=== PATIENT | male | born 1990 | race African-American/Black ===

== ENCOUNTER 2016-09-24 09:45 | Emergency (ER) | payer MEDICAID ==
[~2016-09-24] VITALS: Ht 190.5 cm; Wt 101.0 kg
[~2016-09-24 09:45] MED LIST: ASCO500 PEG; CYAN250014 PO
[2016-09-24] MEDS ORDERED: POVIDONE-IODINE 10% 15 ML SOLUTION UD TP ONE (10:45)
[2016-09-24] MEDS ORDERED: BACITRACIN 0.9 GM PACKET OINTMENT TP ONE (10:45)
[2016-09-24] MEDS ORDERED: HYDROCODONE/ACETAMINOPHEN 10-325 MG TABLET PO ONE (10:45)
[2016-09-24 11:06] VITALS: BP 146/69
== END 2016-09-24 11:10 | disposition home or self-care (01) ==
LOC: EMS 09:47
DX: L02.31 Cutaneous abscess of buttock (principal); L03.115 Cellulitis of right lower limb; F12.90 Cannabis use, unspecified, uncomplicated; Z88.0 Allergy status to penicillin; F17.210 Nicotine dependence, cigarettes, uncomplicated
CPT/HCPCS: 99284

== ENCOUNTER 2016-10-18 00:28 | Emergency (ER) | payer SELFPAY ==
[~2016-10-18] VITALS: Ht 188 cm; Wt 97.0 kg
[2016-10-18] MEDS ORDERED: LORazepam 2 MG TABLET PO ONE (03:30)
[2016-10-18 03:46] VITALS: BP 144/96
== END 2016-10-18 03:48 | disposition home or self-care (01) ==
LOC: EMS 00:30
DX: F41.9 Anxiety disorder, unspecified (principal); F43.20 Adjustment disorder, unspecified; F10.10 Alcohol abuse, uncomplicated; F32.9 Major depressive disorder, single episode, unspecified; F17.210 Nicotine dependence, cigarettes, uncomplicated; F12.90 Cannabis use, unspecified, uncomplicated; Z88.0 Allergy status to penicillin; Y90.9 Presence of alcohol in blood, level not specified
CPT/HCPCS: 99284; 99406

== ENCOUNTER 2016-12-09 02:09 | Emergency (ER) | payer MEDICAID ==
[~2016-12-09] VITALS: Ht 180.3 cm; Wt 81.8 kg
[2016-12-09] MEDS ORDERED: ALBUTEROL SULFATE HFA 90 MCG/PUFF 8 GM INHALER IH ONE (04:15)
[2016-12-09] MEDS ORDERED: LORazepam 2 MG TABLET PO ONE ×2 (04:15)
[2016-12-09 04:31] VITALS: BP 121/78
== END 2016-12-09 04:33 | disposition home or self-care (01) ==
LOC: EMS 02:12
DX: F41.9 Anxiety disorder, unspecified (principal); J45.901 Unspecified asthma with (acute) exacerbation; F32.9 Major depressive disorder, single episode, unspecified; F17.210 Nicotine dependence, cigarettes, uncomplicated; F12.90 Cannabis use, unspecified, uncomplicated; Z59.0 Homelessness; Z88.0 Allergy status to penicillin
CPT/HCPCS: 94640; 99284; 99406; J3535

== ENCOUNTER 2016-12-18 12:50 | Emergency (ER) | payer MEDICAID ==
[~2016-12-18] VITALS: Ht 190.5 cm; Wt 100.0 kg
[2016-12-18 12:56] VITALS: BP 174/100
== END 2016-12-18 16:10 | disposition left against medical advice (07) ==
LOC: EMS 12:51
DX: L02.31 Cutaneous abscess of buttock (principal); F17.210 Nicotine dependence, cigarettes, uncomplicated; F12.90 Cannabis use, unspecified, uncomplicated; Z53.21 Procedure and treatment not carried out due to patient leaving prior to being seen by health care provider

== ENCOUNTER 2016-12-19 08:48 | Emergency (ER) | payer MEDICAID ==
[~2016-12-19] VITALS: Ht 188 cm; Wt 100.0 kg
[2016-12-19] MEDS ORDERED: LIDOCAINE HCL BUFFERED 1% 20 ML VIAL INJ ONE (11:15)
[2016-12-19] MEDS ORDERED: OxyCODONE HCL/ACETAMINOPHEN 5-325 MG TABLET PO ONE (11:15)
[2016-12-19] MEDS ORDERED: ONDANSETRON HCL 4 MG TABLET PO ONE (11:30)
[2016-12-19] MEDS ORDERED: IBUPROFEN 800 MG TABLET PO ONE (13:45)
[2016-12-19 14:09] VITALS: BP 132/75
== END 2016-12-19 14:19 | disposition home or self-care (01) ==
LOC: EMS 08:50
DX: L02.31 Cutaneous abscess of buttock (principal); F17.210 Nicotine dependence, cigarettes, uncomplicated; F12.90 Cannabis use, unspecified, uncomplicated; Z88.0 Allergy status to penicillin
CPT/HCPCS: 10060; 99284; J3490; Q0162

== ENCOUNTER 2017-02-14 05:23 | Emergency (ER) | payer MEDICAID ==
[~2017-02-14] VITALS: Ht 190.5 cm; Wt 93.2 kg
[2017-02-14] MEDS ORDERED: QUET25TA PO (05:31)
[2017-02-14] MEDS ORDERED: OLAN10TA3 PO (05:31)
[2017-02-14] MEDS ORDERED: ALBU8HFA IH (05:31)
[2017-02-14] MEDS ORDERED: QUEtiapine FUMARATE 200 MG TABLET PO ONE (06:30)
[2017-02-14] MEDS ORDERED: QUEtiapine FUMARATE 25 MG TABLET PO ONE (06:30)
[2017-02-14 06:43] LABS: BASOPHILS # (AUTO) 0.04 K/uL (0.00-0.20); BASOPHILS % (AUTO) 0.5 % (0.0-2.0); EOSINOPHILS # (AUTO) 0.03 K/uL (0.00-0.70); EOSINOPHILS % (AUTO) 0.37 % (1.0-6.0); HEMOGLOBIN 16.5 g/dL (13.5-17.5); LYMPHOCYTES # (AUTO) 1.5 K/uL (1.0-4.8); LYMPHOCYTES % (AUTO) 19.8 % (22.0-44.0); MEAN CORPUSCULAR HEMOGLOBIN 27.4 pg (26.0-34.0); MEAN CORPUSCULAR HGB CONC 32.9 G/dL (31.0-37.0); MEAN CORPUSCULAR VOLUME 83 fL (80-100); MONOCYTES # (AUTO) 0.8 K/uL (0.1-1.0); MONOCYTES % (AUTO) 10.4 % (2.0-9.0); NEUTROPHILS # (AUTO) 5.4 K/uL (1.8-7.7); PLATELET COUNT (AUTO) 268 K/uL (150-450); RED CELL DISTRIBUTION WIDTH 14.3 % (11.5-14.5); WHITE BLOOD COUNT (AUTO) 7.8 K/uL (4.5-11.0)
[2017-02-14 06:54] LABS: ANION GAP 11 mmol/L (8-16); CALCIUM, TOTAL 9.6 mg/dL (8.8-10.5); CARBON DIOXIDE 27 mmol/L (22-29); CHLORIDE 99 mmol/L (98-107); CREATININE 1.43 mg/dL (0.60-1.30); GLOMERULAR FILTR. RATE CALC > 60 mL/min (>60); POTASSIUM 4.3 mmol/L (3.5-5.1); SODIUM SERUM 137 mmol/L (136-145); UREA NITROGEN, BLOOD 22 mg/dL (7-18)
[2017-02-14 06:59] LABS: ALANINE AMINOTRANSFERASE 45 U/L (12-78); ASPARTATE AMINOTRANSFERASE 68 U/L (15-37); BILIRUBIN,TOTAL 0.9 mg/dL (0.1-1.0); TOTAL PROTEIN, SERUM 8.9 g/dL (6.4-8.2)
[2017-02-14 07:34] VITALS: BP 132/87
== END 2017-02-14 07:41 | disposition home or self-care (01) ==
LOC: EMS 05:26
DX: F41.9 Anxiety disorder, unspecified (principal); F15.10 Other stimulant abuse, uncomplicated; F17.210 Nicotine dependence, cigarettes, uncomplicated; F32.9 Major depressive disorder, single episode, unspecified; I10 Essential (primary) hypertension; F12.90 Cannabis use, unspecified, uncomplicated; Z88.0 Allergy status to penicillin
CPT/HCPCS: 36415; 80053; 80307; 85025; 99284; 99406; G0480

== ENCOUNTER 2017-02-14 20:33 | Emergency (ER) | payer MEDICAID ==
[~2017-02-14] VITALS: Ht 188 cm; Wt 84.0 kg
[~2017-02-14 20:33] MED LIST changes: +ALBU8HFA IH; +Fluoxetine Hcl PO; +MELO-273 PO; +OLAN10TA3 PO; +OLAN5Z PO; +PRAZ1 PO; +QUET25TA PO; +TETR500C PO; +no meds
[2017-02-14 23:15] VITALS: BP 122/78
[2017-02-15] MEDS ORDERED: QUEtiapine FUMARATE 25 MG TABLET PO ONE
== END 2017-02-15 00:05 | disposition home or self-care (01) ==
LOC: EMS 20:34
DX: F20.9 Schizophrenia, unspecified (principal); F32.9 Major depressive disorder, single episode, unspecified; F17.210 Nicotine dependence, cigarettes, uncomplicated; I10 Essential (primary) hypertension; Z88.0 Allergy status to penicillin
CPT/HCPCS: 99284

== ENCOUNTER 2017-04-13 02:42 | Emergency (ER) | payer MEDICAID ==
[~2017-04-13] VITALS: Ht 188 cm; Wt 95.5 kg
[~2017-04-13 02:42] MED LIST changes: -ASCO500 PEG; -CYAN250014 PO; -Fluoxetine Hcl PO; -MELO-273 PO; -OLAN5Z PO; -PRAZ1 PO; -TETR500C PO; -no meds
[2017-04-13] MEDS ORDERED: UNK HTN MED PO (02:51)
[2017-04-13] MEDS ORDERED: ARIP10TA14 PO (02:51)
[2017-04-13] MEDS ORDERED: CEPH500 PO (02:51)
[2017-04-13] MEDS ORDERED: LURA40 PO (02:51)
[2017-04-13 02:52] LABS: GLUCOSE,POINT OF CARE 119 MG/DL (70-110)
[2017-04-13 05:05] VITALS: BP 136/94
== END 2017-04-13 05:22 | disposition home or self-care (01) ==
LOC: EMS 02:43
DX: F41.9 Anxiety disorder, unspecified (principal); T74.21XA Adult sexual abuse, confirmed, initial encounter; I10 Essential (primary) hypertension; F12.90 Cannabis use, unspecified, uncomplicated; F17.210 Nicotine dependence, cigarettes, uncomplicated; Z88.0 Allergy status to penicillin
CPT/HCPCS: 82962; 99284

== ENCOUNTER 2017-04-22 00:21 | Emergency (ER) | payer MEDICAID ==
[~2017-04-22] VITALS: Ht 182.9 cm; Wt 95.5 kg
[~2017-04-22 00:21] MED LIST changes: +ARIP10TA8 PO; +CEPH500 PO; +LURA40 PO; +UNK HTN MED PO
[2017-04-22 01:47] VITALS: BP 138/98
[2017-04-22] MEDS ORDERED: ATEN25 PO (07:45)
== END 2017-04-22 02:02 | disposition home or self-care (01) ==
LOC: EMS 00:22
DX: J45.909 Unspecified asthma, uncomplicated (principal); F17.210 Nicotine dependence, cigarettes, uncomplicated; F32.9 Major depressive disorder, single episode, unspecified; I10 Essential (primary) hypertension; Z88.0 Allergy status to penicillin
CPT/HCPCS: 99283; 99406

== ENCOUNTER 2017-04-22 07:19 | Inpatient (IN) | payer MEDICAID ==
[~2017-04-22] VITALS: Ht 190.5 cm; Wt 86.6 kg
[2017-04-22] MEDS ORDERED: ATEN25 PO (07:45)
[2017-04-22 07:52] LABS: BASOPHILS % (AUTO) 1.4 % (0.0-2.0); EOSINOPHILS % (AUTO) 1.1 % (1.0-6.0); HEMATOCRIT 43.3 % (41-53); HEMOGLOBIN 14.5 g/dL (13.5-17.5); LYMPHOCYTES # (AUTO) 2.4 K/uL (1.0-4.8); LYMPHOCYTES % (AUTO) 26.6 % (22.0-44.0); MEAN CORPUSCULAR HEMOGLOBIN 28.3 pg (26.0-34.0); MEAN CORPUSCULAR HGB CONC 33.6 G/dL (31.0-37.0); MEAN CORPUSCULAR VOLUME 84 fL (80-100); MONOCYTES # (AUTO) 0.9 K/uL (0.1-1.0); NEUTROPHILS # (AUTO) 5.4 K/uL (1.8-7.7); NEUTROPHILS % (AUTO) 60.9 % (40.0-70.0); PLATELET COUNT (AUTO) 296 K/uL (150-450); RED BLOOD CELL COUNT(AUTO) 5.14 MIL/uL (4.50-5.90); RED CELL DISTRIBUTION WIDTH 13.8 % (11.5-14.5); WHITE BLOOD COUNT (AUTO) 8.9 K/uL (4.5-11.0)
[2017-04-22 07:54] LABS: ANION GAP 10 mmol/L (8-16); CALCIUM, TOTAL 8.9 mg/dL (8.8-10.5); CARBON DIOXIDE 26 mmol/L (22-29); CHLORIDE 103 mmol/L (98-107); CREATININE 1.15 mg/dL (0.60-1.30); GLOMERULAR FILTR. RATE CALC > 60 mL/min (>60); POTASSIUM 3.4 mmol/L (3.5-5.1); SODIUM SERUM 139 mmol/L (136-145); UREA NITROGEN, BLOOD 12 mg/dL (7-18)
[2017-04-22 08:00] LABS: ALANINE AMINOTRANSFERASE 67 U/L (12-78); ALBUMIN 4.1 g/dL (3.4-5.0); ASPARTATE AMINOTRANSFERASE 131 U/L (15-37); BILIRUBIN,TOTAL 0.8 mg/dL (0.1-1.0); TOTAL PROTEIN, SERUM 7.4 g/dL (6.4-8.2)
[2017-04-22] MEDS ORDERED: HALOPERIDOL 5 MG TABLET PO PRN (08:45)
[2017-04-22] MEDS ORDERED: LORazepam 2 MG TABLET PO PRN (08:45)
[2017-04-22] MEDS ORDERED: ZOLPIDEM TARTRATE 10 MG TABLET PO PRN (08:45)
[2017-04-22] MEDS: OLANZapine 5 MG TABLET PO SCH ×2 (09:04→09:22)
[2017-04-22] MEDS ORDERED: POTASSIUM CHLORIDE 20 MEQ ER TABLET PO ONE (09:15)
[2017-04-22] MEDS ORDERED: ALBUTEROL SULFATE HFA 90 MCG/PUFF 8 GM INHALER IH PRN (14:45)
[2017-04-22] MEDS ORDERED: ONDANSETRON HCL 4 MG TABLET PO PRN (15:00)
[2017-04-22] MEDS ORDERED: ACETAMINOPHEN 325 MG TABLET PO PRN (15:00)
[2017-04-22] MEDS ORDERED: PETROLATUM,WHITE 71 GM JELLY TP PRN (15:00)
[2017-04-22] MEDS ORDERED: CloNIDine HCL 0.1 MG TABLET PO PRN (15:00)
[2017-04-22] MEDS ORDERED: MAGNESIUM HYDROXIDE SUSPENSION 30 ML UDCUP PO PRN (15:00)
[2017-04-22] MEDS ORDERED: MAG HYDROX/AL HYDROX/SIMETH ES 30 ML SUSPENSION UDCUP PO PRN (15:00)
[2017-04-22] MEDS ORDERED: BACITRACIN 28.4 GM OINTMENT TP PRN (15:00)
[2017-04-22] MEDS ORDERED: BENZOCAINE/MENTHOL LOZENGE MM PRN (15:00)
[2017-04-22] MEDS ORDERED: LOPERAMIDE HCL 2 MG CAPSULE PO PRN (15:00)
[2017-04-22 16:34] VITALS: BP 124/66
[2017-04-23] MEDS ORDERED: PNEUMOCOCCAL VACCINE POLYVALENT 0.5 ML VIAL [PPSV23] IM ONE (06:00)
[2017-04-23 07:02] VITALS: BP 115/63
[2017-04-23 08:16] LABS: BASOPHILS # (AUTO) 0.03 K/uL (0.00-0.20); BASOPHILS % (AUTO) 0.6 % (0.0-2.0); EOSINOPHILS # (AUTO) 0.29 K/uL (0.00-0.70); EOSINOPHILS % (AUTO) 6.33 % (1.0-6.0); HEMATOCRIT 41.2 % (41-53); LYMPHOCYTES # (AUTO) 1.5 K/uL (1.0-4.8); LYMPHOCYTES % (AUTO) 32.8 % (22.0-44.0); MEAN CORPUSCULAR HEMOGLOBIN 28.1 pg (26.0-34.0); MEAN CORPUSCULAR HGB CONC 33.9 G/dL (31.0-37.0); MEAN CORPUSCULAR VOLUME 83 fL (80-100); MONOCYTES # (AUTO) 0.6 K/uL (0.1-1.0); MONOCYTES % (AUTO) 12.5 % (2.0-9.0); NEUTROPHILS # (AUTO) 2.2 K/uL (1.8-7.7); NEUTROPHILS % (AUTO) 47.8 % (40.0-70.0); PLATELET COUNT (AUTO) 270 K/uL (150-450); RED BLOOD CELL COUNT(AUTO) 4.98 MIL/uL (4.50-5.90); WHITE BLOOD COUNT (AUTO) 4.5 K/uL (4.5-11.0)
[2017-04-23 08:27] LABS: ALANINE AMINOTRANSFERASE 51 U/L (12-78); ALBUMIN 3.2 g/dL (3.4-5.0); ANION GAP 7 mmol/L (8-16); ASPARTATE AMINOTRANSFERASE 72 U/L (15-37); BILIRUBIN,TOTAL 0.7 mg/dL (0.1-1.0); CALCIUM, TOTAL 8.4 mg/dL (8.8-10.5); CARBON DIOXIDE 27 mmol/L (22-29); CHLORIDE 106 mmol/L (98-107); CHOL/HDL RATIO 3.5 (4.2-7.3); CREATININE 0.96 mg/dL (0.60-1.30); GLOMERULAR FILTR. RATE CALC > 60 mL/min (>60); POTASSIUM 3.5 mmol/L (3.5-5.1); SODIUM SERUM 140 mmol/L (136-145); TOTAL PROTEIN, SERUM 5.9 g/dL (6.4-8.2); UREA NITROGEN, BLOOD 9 mg/dL (7-18)
[2017-04-23 08:44] VITALS: BP 135/74
[2017-04-23] MEDS: OLANZapine 5 MG TABLET PO SCH ×2 (08:46→20:08)
[2017-04-23] MEDS: ATENOLOL 25 MG TABLET PO SCH (08:47)
[2017-04-23 16:40] VITALS: BP 107/69
[2017-04-24 02:41] VITALS: BP 116/68
[2017-04-24] MEDS: IBUPROFEN 600 MG TABLET PO PRN (02:42)
[2017-04-24 06:36] VITALS: BP 128/66
[2017-04-24 08:10] VITALS: BP 132/71
[2017-04-24] MEDS: ATENOLOL 25 MG TABLET PO SCH (08:59)
[2017-04-24] MEDS: OLANZapine 5 MG TABLET PO SCH ×2 (08:59→20:51)
[2017-04-24 16:00] VITALS: BP 114/60
[2017-04-25 00:28] VITALS: BP 116/66
[2017-04-25] MEDS: IBUPROFEN 600 MG TABLET PO PRN (00:28)
[2017-04-25 08:36] VITALS: BP 144/80
[2017-04-25] MEDS: ATENOLOL 25 MG TABLET PO SCH (09:04)
[2017-04-25] MEDS: OLANZapine 5 MG TABLET PO SCH (09:04)
[2017-04-25 16:34] VITALS: BP 126/81
== END 2017-04-25 17:10 | disposition home or self-care (01) | DRG 750 ==
LOC: EMS 07:21 → B2S 09:33
PROC: 3E0234Z Introduction of Serum, Toxoid and Vaccine into Muscle, Percutaneous Approach (ICD-10-PCS; principal; 2017-04-24)
DX: F25.1 Schizoaffective disorder, depressive type (principal); Z59.0 Homelessness; I10 Essential (primary) hypertension; F15.10 Other stimulant abuse, uncomplicated; E87.6 Hypokalemia; F12.90 Cannabis use, unspecified, uncomplicated; F14.90 Cocaine use, unspecified, uncomplicated; F41.9 Anxiety disorder, unspecified; F17.210 Nicotine dependence, cigarettes, uncomplicated; J45.909 Unspecified asthma, uncomplicated; Z72.89 Other problems related to lifestyle; Z71.6 Tobacco abuse counseling; Z71.51 Drug abuse counseling and surveillance of drug abuser; Z71.41 Alcohol abuse counseling and surveillance of alcoholic; Z88.0 Allergy status to penicillin; Z23 Encounter for immunization
CPT/HCPCS: 82306; 84439; 84443; 90471; 99285; 99406; G0480

== ENCOUNTER 2017-10-10 15:02 | Inpatient (IN) | payer MEDICAID ==
[~2017-10-10] VITALS: Ht 190.5 cm; Wt 96.7 kg
[~2017-10-10 15:02] MED LIST changes: -ARIP10TA8 PO; +ATEN25TA PO; -CEPH500 PO; -LURA40 PO; -QUET25TA PO; -UNK HTN MED PO
[2017-10-10] MEDS ORDERED: HALOPERIDOL 5 MG TABLET PO PRN (17:45)
[2017-10-10] MEDS ORDERED: LORazepam 2 MG TABLET PO PRN (17:45)
[2017-10-10 18:00] VITALS: BP 134/85
[2017-10-10] MEDS ORDERED: ONDANSETRON HCL 4 MG TABLET PO PRN (18:30)
[2017-10-10] MEDS ORDERED: ACETAMINOPHEN 325 MG TABLET PO PRN (18:30)
[2017-10-10] MEDS ORDERED: BENZOCAINE/MENTHOL LOZENGE MM PRN (18:30)
[2017-10-10] MEDS ORDERED: MAG HYDROX/AL HYDROX/SIMETH ES 30 ML SUSPENSION UDCUP PO PRN (18:30)
[2017-10-10] MEDS ORDERED: LOPERAMIDE HCL 2 MG CAPSULE PO PRN (18:30)
[2017-10-10] MEDS ORDERED: IBUPROFEN 600 MG TABLET PO PRN (18:30)
[2017-10-10] MEDS ORDERED: PETROLATUM,WHITE 71 GM JELLY TP PRN (18:30)
[2017-10-10] MEDS ORDERED: CloNIDine HCL 0.1 MG TABLET PO PRN (18:30)
[2017-10-10] MEDS ORDERED: ALBUTEROL SULFATE HFA 90 MCG/PUFF 8 GM INHALER IH PRN (18:30)
[2017-10-10] MEDS ORDERED: MAGNESIUM HYDROXIDE SUSPENSION 30 ML UDCUP PO PRN (18:30)
[2017-10-10] MEDS ORDERED: BACITRACIN 28.4 GM OINTMENT TP PRN (18:30)
[2017-10-11 05:40] VITALS: BP 120/65
[2017-10-11] MEDS: NICOTINE 14 MG/24 HOUR PATCH TD SCH (08:18)
[2017-10-11 08:22] VITALS: BP 125/89
[2017-10-11 08:35] LABS: BASOPHILS % (AUTO) 0.9 % (0.0-2.0); EOSINOPHILS % (AUTO) 8.9 % (1.0-6.0); HEMATOCRIT 41.2 % (41-53); HEMOGLOBIN 14.3 g/dL (13.5-17.5); LYMPHOCYTES # (AUTO) 1.8 K/uL (1.0-4.8); MEAN CORPUSCULAR HEMOGLOBIN 28.2 pg (26.0-34.0); MEAN CORPUSCULAR HGB CONC 34.7 G/dL (31.0-37.0); MEAN CORPUSCULAR VOLUME 81 fL (80-100); MONOCYTES # (AUTO) 0.6 K/uL (0.1-1.0); MONOCYTES % (AUTO) 10.9 % (2.0-9.0); NEUTROPHILS # (AUTO) 2.6 K/uL (1.8-7.7); NEUTROPHILS % (AUTO) 46.3 % (40.0-70.0); PLATELET COUNT (AUTO) 254 K/uL (150-450); RED BLOOD CELL COUNT(AUTO) 5.07 MIL/uL (4.50-5.90)
[2017-10-11 08:42] LABS: HEMOGLOBIN A1C 4.9 % (4.5-6.2)
[2017-10-11 09:19] LABS: ALANINE AMINOTRANSFERASE 26 U/L (12-78); ALBUMIN 3.3 g/dL (3.4-5.0); ALKALINE PHOSPHATASE 55 U/L (46-116); ANION GAP 9 mmol/L (8-16); ASPARTATE AMINOTRANSFERASE 27 U/L (15-37); BILIRUBIN,TOTAL 0.4 mg/dL (0.1-1.0); CALCIUM, TOTAL 8.6 mg/dL (8.8-10.5); CARBON DIOXIDE 25 mmol/L (22-29); CHLORIDE 106 mmol/L (98-107); CHOL/HDL RATIO 3.3 (4.2-7.3); CHOLESTEROL 144 mg/dL (131-200); FREE T4 (FREE THYROXINE) 0.86 ng/dL (0.76-1.46); GLOMERULAR FILTR. RATE CALC > 60 mL/min (>60); GLUCOSE,RANDOM 78 mg/dL (70-110); HDL CHOLESTEROL 43 mg/dL (40-60); LDL CHOL (CALC.) 93 mg/dL (0-130); POTASSIUM 4.1 mmol/L (3.5-5.1); SODIUM SERUM 140 mmol/L (136-145); THYROID STIMULATING HORMONE 0.26 uIU/mL (0.36-3.74); TOTAL PROTEIN, SERUM 6.5 g/dL (6.4-8.2); TRIGLYCERIDES 41 mg/dL (15-150); UREA NITROGEN, BLOOD 11 mg/dL (7-18)
[2017-10-11 16:13] VITALS: BP 114/80
[2017-10-11] MEDS: OLANZapine 10 MG TABLET PO SCH (21:48)
[2017-10-11] MEDS: ZOLPIDEM TARTRATE 10 MG TABLET PO PRN (21:56)
[2017-10-12 08:29] LABS: AMPHET/METH SCREEN,URINE POSITIVE (NEGATIVE); BARBITURATE SCREEN, URINE NEGATIVE (NEGATIVE); BENZODIAZEPINES SCREEN,URINE NEGATIVE (NEGATIVE); CANNABINOID SCREEN,URINE NEGATIVE (NEGATIVE); COCAINE SCREEN,URINE NEGATIVE (NEGATIVE); METHADONE SCREEN, URINE NEGATIVE (NEGATIVE); OPIATE SCREEN,URINE NEGATIVE (NEGATIVE)
[2017-10-12 08:35] LABS: PHENCYCLIDINE SCREEN,URINE NEGATIVE (NEGATIVE)
[2017-10-12 08:36] LABS: APPEARANCE,URINE CLEAR (CLEAR); BILIRUBIN,URINE NEGATIVE (NEGATIVE); GLUCOSE, URINE (UA) NEGATIVE (NEGATIVE); KETONES,URINE NEGATIVE (NEGATIVE); LEUKOCYTE ESTERASE ,URINE NEGATIVE (NEGATIVE); NITRATE,URINE NEGATIVE (NEGATIVE); OCCULT BLOOD,URINE NEGATIVE (NEGATIVE); PROTEIN,URINE NEGATIVE (NEGATIVE)
[2017-10-12] MEDS: NICOTINE 14 MG/24 HOUR PATCH TD SCH (08:43)
[2017-10-12 10:20] VITALS: BP 114/56
[2017-10-12 16:15] VITALS: BP 115/73
[2017-10-12] MEDS: OLANZapine 10 MG TABLET PO SCH (20:05)
[2017-10-13 06:00] VITALS: BP 103/61
[2017-10-13 09:12] VITALS: BP 124/69
[2017-10-13] MEDS: NICOTINE 14 MG/24 HOUR PATCH TD SCH (09:57)
[2017-10-13 16:00] VITALS: BP 133/60
[2017-10-13] MEDS: ZOLPIDEM TARTRATE 10 MG TABLET PO PRN (20:12)
[2017-10-13] MEDS: OLANZapine 10 MG TABLET PO SCH (20:12)
[2017-10-14 06:00] VITALS: BP 121/68
[2017-10-14 08:02] VITALS: BP 113/64
[2017-10-14] MEDS ORDERED: OLAN10TA3 PO (08:08)
[2017-10-14] MEDS: NICOTINE 14 MG/24 HOUR PATCH TD SCH (09:00)
[2017-10-14 10:15] LABS: HIV 1-2 SCREEN 4TH GEN W/RFLX Non Reactive (Non Reactive)
== END 2017-10-14 11:17 | disposition home or self-care (01) | DRG 750 ==
LOC: B2S 17:36
PROVIDERS: ADMIT Psychiatry & Neurology Psychiatry; ATTEND Psychiatry & Neurology Psychiatry
DX: F25.9 Schizoaffective disorder, unspecified (principal); F22 Delusional disorders; R45.851 Suicidal ideations; F32.9 Major depressive disorder, single episode, unspecified; F14.10 Cocaine abuse, uncomplicated; F15.10 Other stimulant abuse, uncomplicated; F17.200 Nicotine dependence, unspecified, uncomplicated; F41.9 Anxiety disorder, unspecified; G47.00 Insomnia, unspecified; J45.909 Unspecified asthma, uncomplicated; Z71.51 Drug abuse counseling and surveillance of drug abuser; Z71.6 Tobacco abuse counseling; Z88.0 Allergy status to penicillin
CPT/HCPCS: 80307; 82306; 82652; 83036; 84439; 84443; 86592; 87389

== ENCOUNTER 2018-04-02 06:19 | Inpatient (IN) | payer MEDICAID, OTHER ==
[~2018-04-02] VITALS: Ht 190.5 cm; Wt 106.8 kg
[~2018-04-02 06:19] MED LIST changes: -ALBU8HFA IH; -ATEN25TA PO
[2018-04-02] MEDS ORDERED: ARIP15TA2 PO (09:41)
[2018-04-02] MEDS ORDERED: TRAZ-219 PO (09:42)
[2018-04-02 09:59] LABS: BASOPHILS % (AUTO) 1.5 % (0.0-2.0); EOSINOPHILS % (AUTO) 0.5 % (1.0-6.0); HEMATOCRIT 46.8 % (41-53); HEMOGLOBIN 15.8 g/dL (13.5-17.5); LYMPHOCYTES # (AUTO) 2.6 K/uL (1.0-4.8); MEAN CORPUSCULAR HEMOGLOBIN 27.4 pg (26.0-34.0); MEAN CORPUSCULAR HGB CONC 33.6 G/dL (31.0-37.0); MEAN CORPUSCULAR VOLUME 81 fL (80-100); MONOCYTES % (AUTO) 14.5 % (2.0-9.0); NEUTROPHILS # (AUTO) 3.4 K/uL (1.8-7.7); NEUTROPHILS % (AUTO) 47.5 % (40.0-70.0); PLATELET COUNT (AUTO) 274 K/uL (150-450); RED BLOOD CELL COUNT(AUTO) 5.76 MIL/uL (4.50-5.90); RED CELL DISTRIBUTION WIDTH 13.8 % (11.5-14.5)
[2018-04-02 10:10] LABS: ANION GAP 8 mmol/L (8-16); CALCIUM, TOTAL 9.4 mg/dL (8.8-10.5); CARBON DIOXIDE 29 mmol/L (22-29); CHLORIDE 104 mmol/L (98-107); CREATININE 0.95 mg/dL (0.60-1.30); GLOMERULAR FILTR. RATE CALC > 60 mL/min (>60); GLUCOSE,RANDOM 82 mg/dL (70-110); POTASSIUM 3.8 mmol/L (3.5-5.1); SODIUM SERUM 141 mmol/L (136-145); UREA NITROGEN, BLOOD 12 mg/dL (7-18)
[2018-04-02 10:14] LABS: AMPHET/METH SCREEN,URINE POSITIVE (NEGATIVE); BARBITURATE SCREEN, URINE NEGATIVE (NEGATIVE); BENZODIAZEPINES SCREEN,URINE NEGATIVE (NEGATIVE); CANNABINOID SCREEN,URINE NEGATIVE (NEGATIVE); COCAINE SCREEN,URINE NEGATIVE (NEGATIVE); METHADONE SCREEN, URINE NEGATIVE (NEGATIVE); OPIATE SCREEN,URINE NEGATIVE (NEGATIVE)
[2018-04-02 10:15] LABS: PHENCYCLIDINE SCREEN,URINE NEGATIVE (NEGATIVE)
[2018-04-02 10:15] LABS: ALANINE AMINOTRANSFERASE 44 U/L (12-78); ALBUMIN 4.3 g/dL (3.4-5.0); ALKALINE PHOSPHATASE 64 U/L (46-116); ASPARTATE AMINOTRANSFERASE 36 U/L (15-37); BILIRUBIN,TOTAL 0.6 mg/dL (0.1-1.0); TOTAL PROTEIN, SERUM 8.1 g/dL (6.4-8.2)
[2018-04-02] MEDS ORDERED: ZOLPIDEM TARTRATE 10 MG TABLET PO PRN (10:45)
[2018-04-02] MEDS ORDERED: LORazepam 2 MG TABLET PO PRN (10:45)
[2018-04-02] MEDS ORDERED: HALOPERIDOL 5 MG TABLET PO PRN (10:45)
[2018-04-02 20:19] VITALS: BP 149/91
[2018-04-02] MEDS: TraZODone HCL 50 MG TABLET PO SCH (20:51)
[2018-04-02] MEDS: ARIPiprazole 15 MG TABLET PO SCH (20:51)
[2018-04-03 05:26] LABS: FREE T4 (FREE THYROXINE) 0.91 ng/dL (0.76-1.46); THYROID STIMULATING HORMONE 1.73 uIU/mL (0.36-3.74)
[2018-04-03] MEDS ORDERED: IBUPROFEN 400 MG TABLET PO PRN (06:45)
[2018-04-03] MEDS ORDERED: MAGNESIUM HYDROXIDE SUSPENSION 30 ML UDCUP PO PRN (06:45)
[2018-04-03] MEDS ORDERED: MAG HYDROX/AL HYDROX/SIMETH ES 30 ML SUSPENSION UDCUP PO PRN (06:45)
[2018-04-03] MEDS ORDERED: DOCUSATE SODIUM 100 MG CAPSULE PO PRN (06:45)
[2018-04-03] MEDS ORDERED: NICOTINE 14 MG/24 HOUR PATCH TD PRN (06:45)
[2018-04-03] MEDS ORDERED: GuaiFENesin/D-METHORPHAN [SUGAR-FREE] 200-20MG/10 ML SYRUP UDCUP PO PRN (06:45)
[2018-04-03] MEDS ORDERED: ONDANSETRON HCL 4 MG TABLET PO PRN (06:45)
[2018-04-03] MEDS ORDERED: CloNIDine HCL 0.1 MG TABLET PO PRN (06:45)
[2018-04-03] MEDS ORDERED: LOPERAMIDE HCL 2 MG CAPSULE PO PRN (06:45)
[2018-04-03] MEDS ORDERED: ACETAMINOPHEN 325 MG TABLET PO PRN (06:45)
[2018-04-03] MEDS ORDERED: PETROLATUM,WHITE 71 GM JELLY TP PRN (06:45)
[2018-04-03] MEDS ORDERED: ALBUTEROL SULFATE HFA 90 MCG/PUFF 8 GM INHALER IH PRN (06:45)
[2018-04-03 08:14] VITALS: BP 158/94
[2018-04-03] MEDS: ARIPiprazole 15 MG TABLET PO SCH ×2 (09:22→21:53)
[2018-04-03 16:44] VITALS: BP 151/97
[2018-04-03] MEDS: AmLODIPine BESYLATE 5 MG TABLET PO SCH (16:45)
[2018-04-03 20:30] VITALS: BP 139/89
[2018-04-03] MEDS: TraZODone HCL 50 MG TABLET PO SCH (21:53)
[2018-04-04 00:15] VITALS: BP 126/89
[2018-04-04 06:23] LABS: BASOPHILS % (AUTO) 0.7 % (0.0-2.0); EOSINOPHILS % (AUTO) 6.9 % (1.0-6.0); HEMATOCRIT 44.3 % (41-53); HEMOGLOBIN 15.2 g/dL (13.5-17.5); LYMPHOCYTES # (AUTO) 2.5 K/uL (1.0-4.8); LYMPHOCYTES % (AUTO) 51.2 % (22.0-44.0); MEAN CORPUSCULAR HEMOGLOBIN 27.3 pg (26.0-34.0); MEAN CORPUSCULAR HGB CONC 34.3 G/dL (31.0-37.0); MEAN CORPUSCULAR VOLUME 80 fL (80-100); MONOCYTES # (AUTO) 0.6 K/uL (0.1-1.0); MONOCYTES % (AUTO) 12.1 % (2.0-9.0); NEUTROPHILS # (AUTO) 1.4 K/uL (1.8-7.7); NEUTROPHILS % (AUTO) 29.1 % (40.0-70.0); PLATELET COUNT (AUTO) 269 K/uL (150-450); RED BLOOD CELL COUNT(AUTO) 5.57 MIL/uL (4.50-5.90); RED CELL DISTRIBUTION WIDTH 13.9 % (11.5-14.5)
[2018-04-04 06:48] LABS: ALANINE AMINOTRANSFERASE 33 U/L (12-78); ALBUMIN 3.3 g/dL (3.4-5.0); ALKALINE PHOSPHATASE 52 U/L (46-116); ANION GAP 9 mmol/L (8-16); ASPARTATE AMINOTRANSFERASE 21 U/L (15-37); BILIRUBIN,TOTAL 0.6 mg/dL (0.1-1.0); CALCIUM, TOTAL 8.2 mg/dL (8.8-10.5); CARBON DIOXIDE 25 mmol/L (22-29); CHLORIDE 106 mmol/L (98-107); CHOL/HDL RATIO 5.8 (4.2-7.3); CHOLESTEROL 210 mg/dL (131-200); CREATININE 0.85 mg/dL (0.60-1.30); GLOMERULAR FILTR. RATE CALC > 60 mL/min (>60); GLUCOSE,RANDOM 85 mg/dL (70-110); HDL CHOLESTEROL 36 mg/dL (40-60); LDL CHOL (CALC.) 152 mg/dL (0-130); POTASSIUM 3.8 mmol/L (3.5-5.1); SODIUM SERUM 140 mmol/L (136-145); THYROID STIMULATING HORMONE 2.45 uIU/mL (0.36-3.74); TOTAL PROTEIN, SERUM 6.8 g/dL (6.4-8.2); TRIGLYCERIDES 110 mg/dL (15-150); UREA NITROGEN, BLOOD 9 mg/dL (7-18)
[2018-04-04 07:00] LABS: HEMOGLOBIN A1C 4.9 % (4.5-6.2)
[2018-04-04 09:25] VITALS: BP 133/79
[2018-04-04] MEDS: AmLODIPine BESYLATE 5 MG TABLET PO SCH (11:17)
[2018-04-04] MEDS: ARIPiprazole 15 MG TABLET PO SCH ×2 (11:17→20:39)
[2018-04-04 16:51] VITALS: BP 154/87
[2018-04-04] MEDS: TraZODone HCL 50 MG TABLET PO SCH (20:39)
[2018-04-05 08:00] VITALS: BP 106/71
[2018-04-05] MEDS: ARIPiprazole 15 MG TABLET PO SCH (09:50)
[2018-04-05] MEDS: AmLODIPine BESYLATE 5 MG TABLET PO SCH (09:50)
[2018-04-05] MEDS ORDERED: AMLO-511 PO (11:00)
[2018-04-05] MEDS ORDERED: TRAZ-219 PO (13:19)
[2018-04-05] MEDS ORDERED: ARIP15TA2 PO (13:19)
== END 2018-04-05 15:10 | disposition home or self-care (01) | DRG 750 ==
LOC: EMS 06:20 → AHU 19:53 → 3EI 20:10
DX: F25.1 Schizoaffective disorder, depressive type (principal); R45.851 Suicidal ideations; Z59.0 Homelessness; E78.5 Hyperlipidemia, unspecified; F12.90 Cannabis use, unspecified, uncomplicated; F15.10 Other stimulant abuse, uncomplicated; M54.9 Dorsalgia, unspecified; G89.29 Other chronic pain; F17.210 Nicotine dependence, cigarettes, uncomplicated; I10 Essential (primary) hypertension; J45.909 Unspecified asthma, uncomplicated; Z71.6 Tobacco abuse counseling; Z91.5 Personal history of self-harm; Z79.899 Other long term (current) drug therapy; Z88.0 Allergy status to penicillin
CPT/HCPCS: 83036; 84439; 84443; 99285; G0480

== ENCOUNTER 2018-07-27 10:51 | Emergency (ER) | payer MEDICAID ==
[~2018-07-27] VITALS: Ht 188 cm; Wt 97.7 kg
[~2018-07-27 10:51] MED LIST changes: +AMLO-511 PO; +ARIP15TA2 PO; -OLAN10TA3 PO; +TRAZ-219 PO
[2018-07-27 13:07] VITALS: BP 124/68
== END 2018-07-27 13:22 | disposition home or self-care (01) ==
LOC: EMS 10:52
DX: S39.012A Strain of muscle, fascia and tendon of lower back, initial encounter (principal); F17.210 Nicotine dependence, cigarettes, uncomplicated; F12.10 Cannabis abuse, uncomplicated; J45.909 Unspecified asthma, uncomplicated; F32.9 Major depressive disorder, single episode, unspecified; I10 Essential (primary) hypertension; Z79.899 Other long term (current) drug therapy; Z88.0 Allergy status to penicillin; X50.0XXA Overexertion from strenuous movement or load, initial encounter; Y93.89 Activity, other specified; Y92.69 Other specified industrial and construction area as the place of occurrence of the external cause; Y99.0 Civilian activity done for income or pay

== ENCOUNTER 2019-09-22 23:23 | Inpatient (IN) | payer MEDICAID ==
[~2019-09-22] VITALS: Ht 190.5 cm; Wt 94.6 kg
[~2019-09-22 23:23] MED LIST changes: -AMLO-511 PO; +AMLO5TAB9 PO; -TRAZ-219 PO; +TRAZ-252 PO
[2019-09-23] MEDS ORDERED: HALOPERIDOL 5 MG TABLET PO PRN (00:15)
[2019-09-23] MEDS ORDERED: ZOLPIDEM TARTRATE 10 MG TABLET PO PRN (00:15)
[2019-09-23] MEDS ORDERED: LORazepam 1 MG TABLET PO PRN (00:15)
[2019-09-23 01:12] VITALS: BP 140/88
[2019-09-23 08:00] VITALS: BP 149/85
[2019-09-23] MEDS ORDERED: DOCUSATE SODIUM 100 MG CAPSULE PO PRN (16:00)
[2019-09-23] MEDS ORDERED: MAGNESIUM HYDROXIDE SUSPENSION 30 ML UDCUP PO PRN (16:00)
[2019-09-23] MEDS ORDERED: IBUPROFEN 400 MG TABLET PO PRN (16:00)
[2019-09-23] MEDS ORDERED: CloNIDine HCL 0.1 MG TABLET PO PRN (16:00)
[2019-09-23] MEDS ORDERED: ACETAMINOPHEN 325 MG TABLET PO PRN (16:00)
[2019-09-23] MEDS ORDERED: OLANZapine 5 MG RAPDIS TABLET PO PRN (16:00)
[2019-09-23] MEDS ORDERED: HydrOXYzine PAMOATE 50 MG CAPSULE PO PRN (16:00)
[2019-09-23] MEDS ORDERED: ONDANSETRON HCL 4 MG TABLET PO PRN (16:00)
[2019-09-23] MEDS ORDERED: ALBUTEROL SULFATE HFA 90 MCG/PUFF 8 GM INHALER IH PRN (16:00)
[2019-09-23] MEDS ORDERED: LOPERAMIDE HCL 2 MG CAPSULE PO PRN (16:00)
[2019-09-23] MEDS ORDERED: GuaiFENesin/D-METHORPHAN [SUGAR-FREE] 200-20MG/10 ML SYRUP UDCUP PO PRN ×2 (16:00)
[2019-09-23] MEDS ORDERED: MAG HYDROX/AL HYDROX/SIMETH ES 30 ML SUSPENSION UDCUP PO PRN (16:00)
[2019-09-23] MEDS ORDERED: PETROLATUM,WHITE 28 GM JELLY TP PRN (16:00)
[2019-09-23] MEDS ORDERED: NICOTINE 14 MG/24 HOUR PATCH TD PRN (16:00)
[2019-09-23 16:46] VITALS: BP 150/95
[2019-09-23] MEDS ORDERED: THIAMINE HCL 100 MG TABLET PO SCH (17:00)
[2019-09-23] MEDS ORDERED: PRAZOSIN HCL 1 MG CAPSULE PO SCH (21:00)
[2019-09-23] MEDS ORDERED: OLANZapine 5 MG RAPDIS TABLET PO SCH (21:00)
[2019-09-24 06:07] VITALS: BP 159/75
[2019-09-24] MEDS ORDERED: FLUoxetine HCL 20 MG CAPSULE PO SCH (09:00)
[2019-09-24] MEDS ORDERED: MULTIVITAMINS WITH MINERALS, THERAPEUTIC TABLET PO SCH (09:00)
[2019-09-24] MEDS ORDERED: NALTREXONE HCL 50 MG TABLET PO SCH (09:00)
[2019-09-24] MEDS ORDERED: FOLIC ACID 1 MG TABLET PO SCH (09:00)
[2019-09-24] MEDS ORDERED: NALT50TA PO (11:57)
== END 2019-09-24 08:45 | disposition left against medical advice (07) | DRG 750 ==
LOC: B3A 09-23 00:31
PROVIDERS: ADMIT Psychiatry & Neurology Psychiatry; ATTEND Psychiatry & Neurology Psychiatry
DX: F20.9 Schizophrenia, unspecified (principal); Z91.19 Patient's noncompliance with other medical treatment and regimen; I10 Essential (primary) hypertension; J45.909 Unspecified asthma, uncomplicated; Z87.891 Personal history of nicotine dependence

== ENCOUNTER 2020-07-12 15:06 | Inpatient (IN) | payer MEDICAID ==
[~2020-07-12] VITALS: Ht 190.5 cm; Wt 102.6 kg
[~2020-07-12 15:06] MED LIST changes: -AMLO5TAB9 PO; -ARIP15TA2 PO; +ARIP5TAB8 PO; +NALT50TA PO; -TRAZ-252 PO; +TRAZ-257 PO
[2020-07-12 16:00] VITALS: BP 146/118
[2020-07-12] MEDS ORDERED: PALIPERIDONE PALMITATE 234 MG/1.5 ML SYRINGE IM ONE (17:30)
[2020-07-12] MEDS ORDERED: ZOLPIDEM TARTRATE 10 MG TABLET PO PRN (17:30)
[2020-07-12] MEDS ORDERED: OLANZapine 5 MG RAPDIS TABLET PO PRN (17:30)
[2020-07-12] MEDS ORDERED: GuaiFENesin/D-METHORPHAN [SUGAR-FREE] 200-20MG/10 ML SYRUP UDCUP PO PRN (17:30)
[2020-07-12] MEDS ORDERED: HydrOXYzine PAMOATE 50 MG CAPSULE PO PRN (17:30)
[2020-07-12] MEDS ORDERED: PROMETHAZINE HCL 25 MG TABLET PO PRN (17:30)
[2020-07-12] MEDS ORDERED: INFLUENZA VIRUS VACCINE QVS 2020-21 (6MO+)/PF 60 MCG/0.5 ML SYRINGE IM ONE (18:00)
[2020-07-12] MEDS: THIAMINE 100 MG TABLET PO SCH (18:44)
[2020-07-12] MEDS: LORazepam 2 MG TABLET PO PRN (18:44)
[2020-07-12] MEDS ORDERED: LOPERAMIDE HCL 2 MG CAPSULE PO PRN (18:45)
[2020-07-12] MEDS ORDERED: ACETAMINOPHEN 325 MG TABLET PO PRN (18:45)
[2020-07-12] MEDS ORDERED: BENZOCAINE/MENTHOL LOZENGE PO PRN (18:45)
[2020-07-12] MEDS ORDERED: MAG HYDROX/AL HYDROX/SIMETH ES 30 ML SUSPENSION UDCUP PO PRN (18:45)
[2020-07-12] MEDS ORDERED: DOCUSATE SODIUM 100 MG CAPSULE PO PRN (18:45)
[2020-07-12] MEDS ORDERED: BACITRACIN 28 GM OINTMENT TP PRN (18:45)
[2020-07-12] MEDS ORDERED: OMEPRAZOLE 20 MG CAPSULE PO PRN (18:45)
[2020-07-12] MEDS ORDERED: PETROLATUM,WHITE 28 GM JELLY TP PRN (18:45)
[2020-07-12] MEDS ORDERED: CloNIDine HCL 0.1 MG TABLET PO PRN (18:45)
[2020-07-12] MEDS ORDERED: IBUPROFEN 600 MG TABLET PO PRN (18:45)
[2020-07-12] MEDS ORDERED: MAGNESIUM HYDROXIDE SUSPENSION 30 ML UDCUP PO PRN (18:45)
[2020-07-12] MEDS ORDERED: ALBUTEROL SULFATE HFA 90 MCG/PUFF 8 GM INHALER IH PRN (18:45)
[2020-07-12] MEDS ORDERED: ONDANSETRON HCL 4 MG TABLET PO PRN (18:45)
[2020-07-12 19:44] VITALS: BP 130/70
[2020-07-12] MEDS: OLANZapine 5 MG RAPDIS TABLET PO SCH (20:33)
[2020-07-13 04:12] VITALS: BP 124/68
[2020-07-13] MEDS: MULTIVITAMINS WITH MINERALS, THERAPEUTIC TABLET PO SCH (09:57)
[2020-07-13] MEDS: THIAMINE 100 MG TABLET PO SCH ×2 (09:57→17:00)
[2020-07-13] MEDS: OMEGA-3/DHA/EPA/FISH OIL 1,000 MG CAPSULE PO SCH (09:57)
[2020-07-13] MEDS: FOLIC ACID 1 MG TABLET PO SCH (09:57)
[2020-07-13] MEDS: NALTREXONE HCL 50 MG TABLET PO SCH (09:58)
[2020-07-13 16:10] VITALS: BP 162/84
[2020-07-13 17:10] VITALS: BP 142/78
[2020-07-13] MEDS: OLANZapine 5 MG RAPDIS TABLET PO SCH (20:47)
[2020-07-14 00:14] VITALS: BP 152/103
[2020-07-14] MEDS: LORazepam 2 MG TABLET PO PRN ×2 (00:18→09:10)
[2020-07-14 04:41] VITALS: BP 142/96
[2020-07-14] MEDS: MULTIVITAMINS WITH MINERALS, THERAPEUTIC TABLET PO SCH (08:29)
[2020-07-14] MEDS: FOLIC ACID 1 MG TABLET PO SCH (08:29)
[2020-07-14] MEDS: OMEGA-3/DHA/EPA/FISH OIL 1,000 MG CAPSULE PO SCH (08:29)
[2020-07-14] MEDS: THIAMINE 100 MG TABLET PO SCH (08:29)
[2020-07-14] MEDS: NALTREXONE HCL 50 MG TABLET PO SCH (08:30)
[2020-07-14] MEDS ORDERED: NALT50TA PO (13:20)
[2020-07-14] MEDS ORDERED: PALI234D IM (13:20)
[2020-07-14] MEDS ORDERED: PALIPERIDONE PALMITATE 234 MG/1.5 ML SYRINGE IM SCH (13:45)
[2020-07-14] MEDS ORDERED: PALIPERIDONE PALMITATE 234 MG/1.5 ML SYRINGE IM ONE (16:00)
[2020-07-14 16:20] VITALS: BP 122/80
[2020-07-15] MEDS ORDERED: PALIPERIDONE PALMITATE 234 MG/1.5 ML SYRINGE IM SCH (09:00)
[2020-07-16] MEDS ORDERED: PALIPERIDONE PALMITATE 156 MG/ML SYRINGE IM ONE (09:00)
[2020-08-11] MEDS ORDERED: PALIPERIDONE PALMITATE 234 MG/1.5 ML SYRINGE IM SCH (09:00)
== END 2020-07-14 16:44 | disposition home or self-care (01) | DRG 750 ==
LOC: B3A 17:43
PROVIDERS: ADMIT Psychiatry & Neurology Psychiatry; ATTEND Psychiatry & Neurology Psychiatry
DX: F20.9 Schizophrenia, unspecified (principal); I10 Essential (primary) hypertension; J45.909 Unspecified asthma, uncomplicated; G89.29 Other chronic pain; K59.00 Constipation, unspecified; G47.00 Insomnia, unspecified; F41.9 Anxiety disorder, unspecified; Z20.828 Contact with and (suspected) exposure to other viral communicable diseases; Z88.0 Allergy status to penicillin; Z88.1 Allergy status to other antibiotic agents; Z59.0 Homelessness; Z55.9 Problems related to education and literacy, unspecified; Z65.3 Problems related to other legal circumstances